=== PATIENT | female | born 1960 | race African-American/Black ===

== ENCOUNTER 2020-01-08 11:52 | Emergency (ER) | payer SELFPAY ==
[~2020-01-08] VITALS: Ht 160 cm; Wt 46.0 kg
[2020-01-08 14:59] VITALS: BP 122/64
== END 2020-01-08 15:00 | disposition home or self-care (01) ==
LOC: ER 11:52
DX: H66.90 Otitis media, unspecified, unspecified ear (principal); R05 Cough; R03.0 Elevated blood-pressure reading, without diagnosis of hypertension
CPT/HCPCS: 99281